=== PATIENT | female | born 1970 | race African-American/Black ===

== ENCOUNTER 2023-08-24 20:16 | Inpatient (IN) | payer MEDICAID, OTHER ==
[~2023-08-24] VITALS: Ht 195.6 cm; Wt 143.3 kg
[2023-08-24 22:16] LABS: BASOPHILS % 0.8 % (0.0-2.0); EOSINOPHILS % 1.7 % (0.0-5.0); HEMATOCRIT. 39.5 % (36.0-48.0); LYMPHOCYTES % 34.8 % (20.0-50.0); MEAN CORPUSCULAR HEMOGLOBIN 28.5 pg (28.0-32.0); MEAN CORPUSCULAR VOLUME 86.3 fL (81.0-99.0); MEAN PLATELET VOLUME 11.6 fl (7.4-10.4); MONOCYTES % 6.5 % (2.0-8.0); NEUTROPHILS % 56.2 % (40.0-76.0); PLATELET 148 x1000/uL (130-400); RED BLOOD CELL COUNT 4.58 mill/uL (4.2-5.4); RED CELL DISTRIBUTION WIDTH 14.3 % (11.6-14.6); WHITE BLOOD COUNT 6.5 x1000/uL (4.5-11.0)
[2023-08-24 22:33] LABS: ALANINE AMINOTRANSFERASE 8 IU/L (10-49); ASPARTATE AMINOTRANSFERASE 17 IU/L (<34); BILIRUBIN TOTAL 0.2 mg/dL (0.1-1.0); CALCIUM 8.9 mg/dL (8.7-10.4); CARBON DIOXIDE 31 mEq/L (21-32); CHLORIDE 106 mEq/L (98-107); GLUCOSE 95 mg/dL (70-105); POTASSIUM 3.3 mEq/L (3.5-5.1); PROTEIN TOTAL 6.6 g/dL (6.0-8.3); SODIUM 141 mEq/L (136-145); UREA NITROGEN BLOOD 11 mg/dL (9-23)
[2023-08-24] MEDS: HYDRALAZINE 20MG/ML VIAL IV NR (23:52)
[2023-08-24] MEDS: DIPHENHYDRAMINE 50MG/ML VIAL IV NR (23:52)
[2023-08-24] MEDS: METOCLOPRAMIDE HCL 10MG/2ML VIAL IV NR (23:52)
[2023-08-25] MEDS: ONDANSETRON HCL 4MG/2ML INJ IV NR (03:10)
[2023-08-25] MEDS: MORPHINE SULFATE 4 MG/ML CPJ (NOT FOR IM USE) IV NR (03:10)
[2023-08-25 06:20] LABS: CLARITY URINE CLEAR (CLEAR); COLOR URINE YELLOW (YELLOW); GLUCOSE URINE NEGATIVE (NEGATIVE); KETONES URINE NEGATIVE (NEGATIVE); LEUKOCYTE ESTERASE URINE NEGATIVE (NEGATIVE); NITRITE URINE NEGATIVE (NEGATIVE); OCCULT BLOOD URINE NEGATIVE (NEGATIVE); PROTEIN URINE NEGATIVE (NEGATIVE); SPECIFIC GRAVITY URINE 1.017 (1.005-1.030); UROBILINOGEN URINE 0.2 E.U./dL (0.2-1.0)
[2023-08-25] MEDS ORDERED: IPRATROPIUM/ALBUTEROL 0.5-3(2.5)MG/3ML NEB HHN PRN (07:30)
[2023-08-25] MEDS ORDERED: MAGNESIUM/ALUMINUM HYDROXIDE/SIMETHICONE 30ML UDC PO PRN (07:30)
[2023-08-25] MEDS ORDERED: TRAMADOL 50MG TABLET PO PRN (07:30)
[2023-08-25] MEDS ORDERED: GUAIFENESIN 200MG/10ML SUGAR FREE UDC PO PRN (07:30)
[2023-08-25] MEDS ORDERED: ACETAMINOPHEN 325MG TABLET PO PRN (07:30)
[2023-08-25] MEDS ORDERED: ENOXAPARIN 40MG/0.4ML SYR SUBCUT SCH (07:30)
[2023-08-25] MEDS ORDERED: DOCUSATE SODIUM 100MG CAPSULE PO PRN (07:30)
[2023-08-25] MEDS ORDERED: NALOXONE HCL 0.4MG/ML VIAL IV PRN (08:00)
[2023-08-25 09:05] LABS: INR 0.9; PROTHROMBIN TIME 10.1 sec (9.6-11.0)
[2023-08-25] MEDS: CLONIDINE 0.1MG TABLET PO PRN (10:34)
[2023-08-25] MEDS: BUTALBITAL/ACETAMINOPHEN/CAFFEINE 50/325/40MG TABLET PO PRN (10:34)
[2023-08-25] MEDS: ENOXAPARIN 30MG/0.3ML SYR SUBCUT SCH (10:35)
[2023-08-25] MEDS: ACETAMINOPHEN 325MG TABLET PO PRN (13:38)
[2023-08-25 16:00] VITALS: BP 122/74; PULSE 66; RESP 20; TEMP 97.7
[2023-08-25 16:07] VITALS: BP 113/53; PULSE 77; RESP 19; TEMP 98.1
[2023-08-25] MEDS ORDERED: ACET500C47 MT (16:38)
[2023-08-25] MEDS ORDERED: ATOR20TA65 PO (16:49)
[2023-08-25] MEDS ORDERED: METO-396 PO (16:49)
[2023-08-25] MEDS ORDERED: DEXT1TAB65 PO (16:49)
[2023-08-25] MEDS ORDERED: NIFE90TA2 PO (16:49)
[2023-08-25] MEDS ORDERED: ACET-2708 PO (16:49)
[2023-08-25] MEDS ORDERED: ASPI-1497 PO (16:49)
[2023-08-25] MEDS ORDERED: LISI20TA31 PO (16:49)
[2023-08-25] MEDS ORDERED: OMEP20TA23 PO (16:49)
[2023-08-25] MEDS ORDERED: BACL-141 PO (16:49)
[2023-08-25 17:38] LABS: CREATINE KINASE 127 IU/L (34-145)
[2023-08-25] MEDS: POTASSIUM CHLORIDE 20MEQ TABLET SR PO NR (17:41)
[2023-08-25] MEDS: ONDANSETRON HCL 4MG/2ML INJ IV PRN (18:32)
[2023-08-25 19:55] LABS: *AMPHETAMINES SCREEN URINE NEGATIVE (NEGATIVE); *BARBITURATES SCREEN URINE PRESUMPTIVE POSITIVE (NEGATIVE); *BENZODIAZEPINES SCREEN URINE NEGATIVE (NEGATIVE); *COCAINE SCREEN URINE NEGATIVE (NEGATIVE); CANNABINOID URINE SCREEN NEGATIVE (NEGATIVE); ECSTASY MDMA SCREEN URINE NEGATIVE (NEGATIVE); METHADONE URINE SCREEN Neg (NEGATIVE); OPIATES URINE SCREEN PRESUMPTIVE POSITIVE (NEGATIVE); PHENCYCLIDINE URINE SCREEN NEGATIVE (NEGATIVE)
[2023-08-25 20:00] VITALS: BP 151/92; PULSE 70; RESP 20; TEMP 98.6
[2023-08-25] MEDS: FAMOTIDINE 20MG/2ML VIAL IV SCH (20:10)
[2023-08-26] VITALS: BP 179/96; PULSE 77; RESP 20; TEMP 99.9
[2023-08-26 02:50] LABS: CREATINE KINASE 129 IU/L (34-145)
[2023-08-26 04:00] VITALS: BP 138/72; PULSE 61; RESP 19; TEMP 98.1
[2023-08-26] MEDS: LORAZEPAM 2MG/ML INJ IV NR ×2 (06:10→12:15)
[2023-08-26 06:57] LABS: BASOPHILS % 0.6 % (0.0-2.0); DIFFERENTIAL COMMENT 0; EOSINOPHILS % 2.2 % (0.0-5.0); HEMATOCRIT. 38.8 % (36.0-48.0); HEMOGLOBIN. 12.5 g/dL (12.0-16.0); LYMPHOCYTES % 36.7 % (20.0-50.0); MEAN CORPUSCULAR HEMOGLOBIN 27.9 pg (28.0-32.0); MEAN CORPUSCULAR HGB CONC 32.1 g/dL (31.0-37.0); MEAN CORPUSCULAR VOLUME 86.8 fL (81.0-99.0); MEAN PLATELET VOLUME 11.5 fl (7.4-10.4); MONOCYTES % 7.8 % (2.0-8.0); NEUTROPHILS % 52.7 % (40.0-76.0); PLATELET 146 x1000/uL (130-400); RED BLOOD CELL COUNT 4.47 mill/uL (4.2-5.4); RED CELL DISTRIBUTION WIDTH 14.2 % (11.6-14.6); WHITE BLOOD COUNT 4.9 x1000/uL (4.5-11.0)
[2023-08-26 07:24] LABS: CALCIUM 8.6 mg/dL (8.7-10.4); CARBON DIOXIDE 29 mEq/L (21-32); CHLORIDE 104 mEq/L (98-107); CHOLESTEROL 184 mg/dL (<200); GLUCOSE 90 mg/dL (70-105); HDL CHOLESTEROL 39 mg/dL (>65); LDL CHOLESTEROL 127 mg/dL (5-100); PHOSPHORUS 3.8 mg/dL (2.5-4.9); POTASSIUM 4.4 mEq/L (3.5-5.1); SODIUM 139 mEq/L (136-145); THYROID STIMULATING HORMONE 0.83 uIU/mL (0.55-4.78); TRIGLYCERIDE 90 mg/dL (0-150); UREA NITROGEN BLOOD 15 mg/dL (9-23)
[2023-08-26 08:00] VITALS: BP 149/77; PULSE 61; RESP 18; TEMP 97.1
[2023-08-26] MEDS: ASPIRIN 300MG SUPP PR NR (08:17)
[2023-08-26 12:00] VITALS: BP 107/52; PULSE 62; RESP 18; TEMP 97.1
[2023-08-26] MEDS ORDERED: TOPUD PO (15:26)
[2023-08-26 16:00] VITALS: BP 170/90; PULSE 64; RESP 18; TEMP 97.2
[2023-08-26] MEDS: NIFEDIPINE XL 90MG TAB PO SCH (17:00)
[2023-08-26] MEDS: LISINOPRIL 20MG TABLET PO SCH (17:00)
[2023-08-26] MEDS: METOPROLOL SUCCINATE 50MG ER TABLET PO SCH (17:00)
[2023-08-26 18:20] VITALS: BP 157/97; PULSE 72; TEMP 97.1; O2SAT 96
== END 2023-08-26 19:00 | disposition home or self-care (01) | DRG 54 ==
LOC: ER 20:16 → 8WST 08-25 06:11 → EDBEDREQ 08-25 06:15 → EDBEDREQTM 08-25 06:15
PROVIDERS: ADMIT Internal Medicine; ATTEND Internal Medicine
DX: G43.909 Migraine, unspecified, not intractable, without status migrainosus (principal); E66.01 Morbid (severe) obesity due to excess calories; E87.6 Hypokalemia; I10 Essential (primary) hypertension; K21.9 Gastro-esophageal reflux disease without esophagitis; Z88.6 Allergy status to analgesic agent; Z68.37 Body mass index [BMI] 37.0-37.9, adult
CPT/HCPCS: 36415; 70496; 70551; 80048; 80053; 80061; 80305; 81003; 82550; 82962; 83036; 83735; 84100; 84439; 84443; 84481; 85025; 92523; 92610; 93306; 97166; 99285; J0360; J1200; J1650; J2060; J2270; J2405; J2765; J3490